=== PATIENT | male | born 1930 | race Caucasian/White ===

== ENCOUNTER 2016-12-14 13:22 | Emergency (ER) | payer MEDICARE ==
[~2016-12-14] VITALS: Ht 170.2 cm; Wt 80.9 kg
[~2016-12-14 13:22] MED LIST: CLOP75 PO; FLUN25I; PROS5TAB2 PO; PROT40TA PO; ROSU40 PO; SERT100 PO; TAB-TAB PO; TREN400T PO
[2016-12-14 13:26] VITALS: BP 129/60; PULSE 74; RESP 16; TEMP 97.8; O2SAT 94
[2016-12-14] MEDS ORDERED: FAMO20TA2 PO (14:15)
[2016-12-14] MEDS ORDERED: ROSU40 PO (14:15)
[2016-12-14] MEDS ORDERED: PLAV75TA29 PO (14:15)
[2016-12-14] MEDS ORDERED: PENT400T PO (14:15)
[2016-12-14] MEDS ORDERED: MULTTAB67 PO (14:15)
[2016-12-14] MEDS ORDERED: SERT-129 PO (14:15)
[2016-12-14] MEDS ORDERED: FINA5TAB2 PO (14:15)
[2016-12-14] MEDS ORDERED: FLUTI110I INH (14:15)
[2016-12-14] MEDS ORDERED: COQ1200C (14:15)
[2016-12-14] MEDS ORDERED: CYAN1TAB24 P-ARTICULR (14:15)
--- NOTE | 2016-12-14 14:36 | PD ---
HPI Chief Complaint: Fall Time Seen by Provider: 14:23 Travel History International Travel<30 days: No Contact w/Intl Traveler<30days: No Traveled to known affect area: No History of Present Illness HPI This 86-year-old male had a fall yesterday. He thinks he tripped on his cane and he fell forward. He hit his face and knees and left side chest. He did not lose consciousness. He is having pain in the left side of his ribs and his right elbow. He has been able to walk since the injury. He says he does not feel short of breath. PFSH Past Medical History AAA: Yes (repair) Arthritis: Yes Cancer: Yes (HX BLADDER, SKIN) Cardiac Catheterization: Yes Cardiovascular Problems: Yes (S/P CABG 2000, TRANSIENT A. FIB) High Cholesterol: Yes Chest Pain: Yes Coronary Artery Disease: Yes Diabetes: Yes (DIET CONTROLLED) Patient Takes Glucophage: No Diminished Hearing: No Endocrine: Yes Gastrointestinal Disorders: Yes GERD: Yes Glaucoma: No Genitourinary: Yes Hepatitis: No Hiatal Hernia: No Herniated Disk: Yes Hypertension: Yes Immune Disorder: No Implanted Vascular Access Dvce: No Kidney Stones: Yes Medical other: Yes (GERD - EXTRAPYRAMIDAL SYNDROME) Musculoskeletal: Yes (1963 BACK SURGERY) Neurologic: Yes (2mm brain aneurysm) Parkinson's Disease: Yes Reproductive: No Respiratory: No Immunizations Current: Yes Thyroid Disease: No Tetanus Vaccination: Unknown PNEUMOCCOCAL Vaccine (Year): 2008 Past Surgical History Abdominal Aneurysm Repair: Yes (1999) Abdominal Surgery: Yes (LEFT ING. HERNIA REP.) Cardiac Surgery: Yes (CABG) Coronary Artery Bypass Graft: Yes (3 VESSEL 2000) Ear Surgery: No Eye Surgery: Yes (CARLEE. CATARACT EXTRACT.) Genitourinary Surgery: Yes (RENAL CALC. RETRIEVAL, MICROWAVE PROSTATE, TURBT) Neurologic Surgery: Yes (LUMBAR LAMI) Oral Surgery: Yes (T & A) Pacemaker: No Thoracic Surgery: Yes (AAA REP.) Tonsillectomy: Yes Other Surgery: Yes (BASAL CELL NECK AND BLADDER CANCER) Social History Alcohol Use: No Tobacco Use: No Substance Use: No Allergies-Medications (Allergen,Severity, Reaction): Coded Allergies: Aspirin (Verified Allergy, Severe, Anaphylaxis, 12/14/16) Uncoded Allergies: FOOD ADDITIVES YELLOW FOOD DYE #5 (Allergy, Severe, Anaphylaxis, 09/11/07) Reported Meds & Prescriptions Reported Meds & Active Scripts Active Reported B12 (Cyanocobalamin) 1,000 Mcg Tab 1,000 Mg P-ARTICULR QOD Coq10 (Coenzyme Q10 (Ubidecarenone)) 200 Mg Cap Flovent Hfa 12 GM Inh (Fluticasone Propionate) 110 Mcg/Act Inh 1 Puff INH BID Pentoxifylline ER (Pentoxifylline) 400 Mg Tab 400 Mg PO BID Sertraline (Sertraline HCl) 100 Mg Tab 100 Mg PO DAILY Crestor (Rosuvastatin Calcium) 40 Mg Tab 40 Mg PO DAILY Famotidine 20 Mg Tab 20 Mg PO DAILY Multiple Vitamin 1 Tab 1 Tab PO DAILY Finasteride 5 Mg Tab 5 Mg PO DAILY Do not crush. Plavix (Clopidogrel Bisulfate) 75 Mg Tab 75 Mg PO DAILY Review of Systems General / Constitutional: No: Fever, Chills Eyes: No: Diploplia, Blurred Vision HENT: No: Headaches, Vertigo Cardiovascular: Positive: Chest Pain or Discomfort Respiratory: Positive: Pleuritic Pain Gastrointestinal: No: Vomiting, Diarrhea Genitourinary: No: Urgency, Frequency Musculoskeletal: No: Myalgias, Arthralgias Skin: No Rash Neurologic: No: Weakness, Dizziness Physical Exam Narrative GENERAL: Well-developed male SKIN: Focused skin assessment warm/dry. HEAD: Atraumatic. Normocephalic. EYES: Pupils equal and round. No scleral icterus. No injection or drainage. ENT: No nasal bleeding or discharge. Mucous membranes pink and moist. There is a small abrasion at the base of the nose NECK: Trachea midline. No JVD. CARDIOVASCULAR: Regular rate and rhythm. No murmur appreciated. RESPIRATORY: No accessory muscle use. There is left-sided chest wall tenderness. Breath sounds are diminished on the left side GASTROINTESTINAL: Abdomen soft, non-tender, nondistended. Hepatic and splenic margins not palpable. MUSCULOSKELETAL: No obvious deformities. No clubbing. No cyanosis. No edema. There are abrasions on both knees. He is able to flex and extend the knees and he has been bearing weight. He complains of pain with flexion and extension of the elbow although the range of motion is fairly good urine NEUROLOGICAL: Awake and alert. No obvious cranial nerve deficits. Motor grossly within normal limits. Normal speech. PSYCHIATRIC: Appropriate mood and affect; insight and judgment normal. Data Data Last Documented VS Vital Signs Date Time Temp Pulse Resp B/P Pulse Ox O2 Delivery O2 Flow Rate FiO2 12/14/16 15:43 60 16 138/67 95 Room Air 12/14/16 13:26 97.8 Orders Ribs, Uni (W/Exp Cxr-Min 3vw) (12/14/16 14:31) Elbow, Complete (4 Vws) (12/14/16 14:31) Tetanus/Diphtheria Tox Adult (Tetanus/Di (12/14/16 14:45) MDM Medical Decision Making Medical Screen Exam Complete: Yes Emergency Medical Condition: Yes Medical Record Reviewed: Yes Differential Diagnosis Differential includes rib fracture, elbow fracture, chest wall contusion, pneumothorax Narrative Course On x-rays of the left ribs I do not see a fracture. The lungs are expanded with slight basilar atelectasis. X-ray of the right elbow shows degenerative changes. The patient has been taking Tylenol for pain. He does not take anti- inflammatory medication because he is allergic to aspirin. I offered prescription pain medicine but he does not want anything. . Diagnosis Primary Impression: Chest wall contusion Qualified Code: S20.212A - Chest wall contusion, left, initial encounter Additional Impression: Contusion of elbow Qualified Code: S50.01XA - Contusion of right elbow, initial encounter Additional Instructions: Take Tylenol for pain Disposition: 01 DISCHARGE HOME Condition: Stable Timi Mcknight MD Dec 14, 2016 14:36
[2016-12-14] MEDS ORDERED: TETANUS/DIPHTHERIA TOXOID ADULT 0.5 ML VIAL IM ONE (14:45)
[2016-12-14 15:43] VITALS: BP 138/67; PULSE 60; RESP 16; O2SAT 95
--- NOTE | 2016-12-14 16:16 | RADHPO ---
EXAM DATE/TIME: 12/14/2016 14:44 [facility] COMPARISON: No previous studies available for comparison. INDICATIONS : Fell at sikh, left chest pain MEDICAL HISTORY : None. SURGICAL HISTORY : CABG. ENCOUNTER: Initial ACUITY: 1 day PAIN SCORE: 8/10 LOCATION: Left chest FINDINGS: Multiple views of the left ribs were performed. There is no evidence of displaced fracture. No dest ructive lesions or areas of periosteal thickening are seen. Expiratory view of the chest is negative for pneumothorax. The mediastinal structures are midline. CONCLUSION: 1. No acute rib fracture. Postop CABG. Tortuous aorta. Mild basilar atelectasis and scarring. Brian Watson MD on December 14, 2016 at 16:11 Board Certified Radiologist. This report was verified electronically.
--- NOTE | 2016-12-14 16:21 | RADHPO ---
EXAM DATE/TIME: 12/14/2016 14:51 [facility] COMPARISON: No previous studies available for comparison. INDICATIONS : Fell at restorationism, right elbow pain MEDICAL HISTORY : None. SURGICAL HISTORY : CABG. ENCOUNTER: Initial ACUITY: 1 day PAIN SCORE: 7/10 LOCATION: Right elbow FINDINGS: Multiple view examination of the right elbow demonstrates no soft tissue swelling, joint effusion, or fracture. The osseous structures are in normal alignment. Bony mineralization is normal. CONCLUSION: 1. No acute findings. Prominent bone spur at the triceps insertion. Brian Watson MD on December 14, 2016 at 16:15 Board Certified Radiologist. This report was verified electronically.
--- NOTE | 2016-12-14 16:26 | PD ---
Physical Exam Narrative Patient was signed out to me at [address] Mccord pending x-ray reports. Data Data Last Documented VS Vital Signs Date Time Temp Pulse Resp B/P Pulse Ox O2 Delivery O2 Flow Rate FiO2 12/14/16 15:43 60 16 138/67 95 Room Air 12/14/16 13:26 97.8 Orders Ribs, Uni (W/Exp Cxr-Min 3vw) (12/14/16 14:31) Elbow, Complete (4 Vws) (12/14/16 14:31) Tetanus/Diphtheria Tox Adult (Tetanus/Di (12/14/16 14:45) MDM Supervised Visit with FAUSTINO: No Narrative Course Elbow x-ray CONCLUSION: 1. No acute findings. Prominent bone spur at the triceps insertion. Rib x-rays CONCLUSION: 1. No acute rib fracture. Postop CABG. Tortuous aorta. Mild basilar atelectasis and scarring. Diagnosis Primary Impression: Chest wall contusion Qualified Code: S20.212A - Chest wall contusion, left, initial encounter Additional Impression: Contusion of elbow Qualified Code: S50.01XA - Contusion of right elbow, initial encounter Additional Instruction: Take Tylenol for pain Disposition: 01 DISCHARGE HOME Condition: Stable Jackie Florian MD Dec 14, 2016 16:25
== END 2016-12-14 16:52 | disposition home or self-care (01) ==
LOC: PHED 13:22
DX: S20.212A Contusion of left front wall of thorax, initial encounter (principal); S50.01XA Contusion of right elbow, initial encounter; J98.11 Atelectasis; I10 Essential (primary) hypertension; E11.9 Type 2 diabetes mellitus without complications; E78.00 Pure hypercholesterolemia, unspecified; W01.0XXA Fall on same level from slipping, tripping and stumbling without subsequent striking against object, initial encounter; Z23 Encounter for immunization; Z86.79 Personal history of other diseases of the circulatory system; Z87.39 Personal history of other diseases of the musculoskeletal system and connective tissue; Z87.19 Personal history of other diseases of the digestive system; Z87.448 Personal history of other diseases of urinary system; Z86.69 Personal history of other diseases of the nervous system and sense organs
CPT/HCPCS: 71101; 73080; 90471; 90714